=== PATIENT | female | born 1955 | race Caucasian/White ===

== ENCOUNTER → 2016-10-12 | Outpatient (CLI) | payer OTHER ==
[~2016-10-12] MED LIST: ASPEC81 PO; ATOR-14 PO; BUPRTAB51 PO; CITA20TA4 PO; CLB200 PO; CQ10 PO; FENO145T26 PO; FRRG PO; GLC/500 PO; IBUP-1050 PO; IBUP1TAB55 PO; MULTTAB58 PO; NIAC1CAP PO; OMEG1CAP84 PO; PREG1CAP28 PO; TRAM-10 PO; VITACAP26 PO; [UNRECOGNIZED DRUG - CODE] PO
[2016-10-12 09:10] LABS: ALT/SGPT 48 U/L (12-78); BLOOD UREA NITROGEN 21 mg/dl (7-18); BUN/CREATININE RATIO 24.3 (10-20); CALCIUM 9.2 mg/dl (8.5-10.1); CARBON DIOXIDE 27 mmol/L (21-32); CHLORIDE 102 mmol/L (98-107); CHOLESTEROL 161 mg/dl (0-200); CREATININE 0.87 mg/dl (0.60-1.20); GLUCOSE 134 mg/dl (70-99); POTASSIUM 4.2 mmol/L (3.5-5.1); SODIUM 135 mmol/L (136-145); TRIGLYCERIDES 151 mg/dl (0-150); VERY LOW DENSITY LIPOPROT CALC 30 mg/dl
[2016-10-12 09:13] LABS: ALKALINE PHOSPHATASE 59 U/L (45-117); AST/SGOT 31 U/L (15-37); CHOLESTEROL/HDL RATIO 3.7; HDL CHOLESTEROL 43 mg/dl; LDL CHOLESTEROL CALCULATED 88 mg/dl
[2016-10-12 10:28] LABS: ESTIMATED AVERAGE GLUCOSE 143 mg/dl; HA1C FLAG Normal (Normal)
--- NOTE | 2016-10-18 09:57 | CODING QUERY NO DIAGNOSIS ---
TREATMENT RENDERED WITHOUT A DIAGNOSIS : 1955 To promote full compliance with coding requirements relating to patient care, physician participation is requested in all cases of doll surgeon uncertainty. Please assist us with providing a diagnosis/symptom for the test(s) below: A diagnosis/symptom was not documented on your Order. A valid diagnosis/symptom is required to bill all insurances. Please remember that we are unable to code a diagnosis of rule out, probable, possible, questionable, or suspected. Tests that require a diagnosis: DOS: 10/12/16 * COMPREHENSIVE METABO DIAGNOSIS: * LIPID PROFILE FASTING DIAGNOSIS: * HEMOGLOBIN DIAGNOSIS: Provider Signature: Date: Thank you [facility] Information Management Once completed, please kindly fax back to [phone] For questions please call [phone]
== END | disposition home or self-care (01) ==
LOC: C.LAB 07:32
PROVIDERS: ATTEND Family Medicine
DX: E78.2 Mixed hyperlipidemia (principal); E11.9 Type 2 diabetes mellitus without complications

== ENCOUNTER → 2017-01-11 | Outpatient (CLI) | payer OTHER ==
[2017-01-11 08:15] LABS: ALB/GLOB RATIO 1.1 (0.9-2); ALKALINE PHOSPHATASE 68 U/L (45-117); ALT/SGPT 47 U/L (12-78); AST/SGOT 28 U/L (15-37); BLOOD UREA NITROGEN 21 mg/dl (7-18); BUN/CREATININE RATIO 20.7 (10-20); CARBON DIOXIDE 27 mmol/L (21-32); CHLORIDE 106 mmol/L (98-107); CHOLESTEROL 188 mg/dl (0-200); CHOLESTEROL/HDL RATIO 5.5; GLUCOSE 124 mg/dl (70-99); HDL CHOLESTEROL 34 mg/dl; LDL CHOLESTEROL CALCULATED 101 mg/dl; POTASSIUM 4.7 mmol/L (3.5-5.1); SODIUM 141 mmol/L (136-145); TRIGLYCERIDES 266 mg/dl (0-150); VERY LOW DENSITY LIPOPROT CALC 53 mg/dl
[2017-01-11 08:36] LABS: CALCIUM 9.4 mg/dl (8.5-10.1)
[2017-01-11 09:20] LABS: ESTIMATED AVERAGE GLUCOSE 146 mg/dl; HA1C FLAG Normal (Normal)
== END | disposition home or self-care (01) ==
LOC: C.LAB 06:47
PROVIDERS: ATTEND Family Medicine
DX: E11.9 Type 2 diabetes mellitus without complications (principal)

== ENCOUNTER → 2017-02-06 | Outpatient (CLI) | payer OTHER ==
--- NOTE | 2017-02-06 09:59 | DIAGNOSTIC IMAGING REPORT ---
MRI LUMBAR SPINE W/O CONTRAST CLINICAL HISTORY: Back pain with right leg radiculopathy. TECHNIQUE: Sagittal and axial T1, T2 and STIR images were obtained. COMPARISON STUDY: November 2012 OBSERVATIONS: The vertebral bodies and posterior elements appear intact. There is no abnormal bony signal present to suggest a marrow replacement process. L1-2: No disc protrusions or extrusions. No evidence of spinal canal or neural foraminal compromise. L2-3: No disc protrusions or extrusions. No evidence of spinal canal or neural foraminal compromise. L3-4: There is a circumferential disc bulge present. There is mild spinal stenosis. There is interspinous implant present. L4-5: There are posterior osteophytic spurs with subjacent disc protrusion.. There is facet joint arthropathy. There is moderate spinal stenosis. There is mild left-sided foraminal narrowing. There is interspinous implant present. L5-S1: There is a disc bulge and central disc protrusion. There is moderate spinal stenosis. There is moderate bilateral foraminal narrowing. The conus medullaris and cauda equina appear normal. IMPRESSION: 1. Interval placement of L3-4, and L4-5 interspinous implants 2. Multilevel spondylitic change. Mild spinal stenosis the L3-4 level, and moderate spinal stenosis at the L4-5 and L5-S1 levels. 3. Left-sided foraminal narrowing at the L4-5 level, and bilateral foraminal narrowing at the L5-S1 level. Electronically signed by: Chang Bruner M.D. 02/06/2017 9:57 AM Dictated Date/Time: 02/06/2017 9:52 AM
== END | disposition home or self-care (01) ==
LOC: C.MRIBC 08:46
PROVIDERS: ATTEND Family Medicine
DX: M54.9 Dorsalgia, unspecified (principal); M54.16 Radiculopathy, lumbar region; Z98.1 Arthrodesis status

== ENCOUNTER 2017-04-10 05:18 | Inpatient (IN) | payer OTHER ==
[2017-03-28 15:06] VITALS: BMI 39.0
--- NOTE | 2017-03-28 15:50 | PAT Medication Instructions ---
Service Date Mar 28, 2017. Current Home Medication List Atorvastatin (Lipitor), 10 MG PO QPM Bupropion (Wellbutrin-Xl), 300 MG PO QAM Citalopram Hydrobromide (Citalopram Hydrobromide), 20 MG PO QPM Fenofibrate (Tricor ), 145 MG PO QPM Ibuprofen (Advil), 200-600 MG PO Q4H PRN for Pain Metformin Hcl (Glucophage), 500 MG PO BIDM Multiple Vitamin (Multivitamin), 1 TAB PO QAM Niacin W/ Inositol (Niacin Flush Free), 1 CAP PO QAM Pierc[place]-3 Fatty Acids (Fish Oil), 3,000 UNITS PO QAM Pregabalin (Lyrica), 75 MG PO BID Tramadol (Ultram), 1 TAB PO Q6H PRN for Pain [Cq10], 100 MG PO QPM Medication Instructions For Your Scheduled Surgery - Hold the following medications as of 03/29/17: [Cq10], 100 MG PO QPM Pierceton-3 Fatty Acids (Fish Oil), 3,000 UNITS PO QAM - Hold the following medications 48 hours prior to surgery: Metformin Hcl (Glucophage), 500 MG PO BIDM - Hold the following medications 24 hours prior to surgery: Fenofibrate (Tricor ), 145 MG PO QPM Niacin W/ Inositol (Niacin Flush Free), 1 CAP PO QAM - Hold the following medications the morning of surgery: Multiple Vitamin (Multivitamin), 1 TAB PO QAM Ibuprofen (Advil), 200-600 MG PO Q4H PRN for Pain (otherwise okay to continue per surgeon) - Take the following medications the morning of surgery with a sip of water OTHERWISE NOTHING TO EAT OR DRINK AFTER MIDNIGHT: Pregabalin (Lyrica), 75 MG PO BID Bupropion (Wellbutrin-Xl), 300 MG PO QAM Tramadol (Ultram), 1 TAB PO Q6H PRN for Pain (may take if needed up to 4 hours prior to surgery) - Take the following medications as scheduled the night before surgery: Citalopram Hydrobromide (Citalopram Hydrobromide), 20 MG PO QPM Atorvastatin (Lipitor), 10 MG PO QPM Pregabalin (Lyrica), 75 MG PO BID Tramadol (Ultram), 1 TAB PO Q6H PRN for Pain If you have any questions please call us at [phone] or [phone] or [phone]
[2017-03-28 16:47] LABS: BASO % 0.7 %; BASO ABS # 0.05 K/uL (0-0.2); COMPLETE YES; EOS % 2.2 %; IG% 0.1 %; LYMPH ABS # 2.49 K/uL (1.2-3.4); MEAN CELL VOLUME 91.5 fL (80-100); MEAN CORPUSCULAR HEMOGLOBIN 29.3 pg (25-34); MEAN CORPUSCULAR HGB CONC 32.1 g/dl (32-36); MEAN PLATELET VOLUME 11.7 fL (7.4-10.4); MONO % 6.2 %; NEUT % 55.8 %; PLATELET COUNT 369 K/uL (130-400); RED BLOOD COUNT 4.26 M/uL (4.2-5.4); WHITE BLOOD COUNT 7.12 K/uL (4.8-10.8)
--- NOTE | 2017-03-28 17:07 | DIAGNOSTIC IMAGING REPORT ---
CHEST PREADMISSION(PA/LAT) CLINICAL HISTORY: Preoperative evaluation. COMPARISON STUDY: Chest radiograph February 12, 2015. FINDINGS: Lung volumes are normal. Lungs are clear. No pneumothorax or pleural effusion is present. Cardiomediastinal silhouette is normal. Pulmonary vascularity is normal. There is no evidence of pulmonary edema. The appearance of the chest is unchanged. IMPRESSION: No acute cardiopulmonary findings. Electronically signed by: Piter De La Garza M.D. 03/28/2017 5:06 PM Dictated Date/Time: 03/28/2017 5:05 PM
[2017-03-28 17:09] LABS: INR 1.1 (0.9-1.1); PARTIAL THROMBOPLASTIN RATIO 0.9; PROTHROMBIN TIME (PATIENT) 11.5 SECONDS (9.0-12.0)
[2017-03-28 17:09] LABS: URINE APPEARANCE CLOUDY (CLEAR); URINE BILIRUBIN NEG (NEG); URINE COLOR DK YELLOW; URINE EPITHELIAL CELL AUTO >30 /lpf (0-5); URINE NITRITE NEG (NEG); URINE PH 5.5 (4.5-7.5); URINE SPECIFIC GRAVITY 1.026 (1.000-1.030); UROBILINOGEN NEG (NEG)
[2017-03-28 17:11] LABS: CALCIUM 9.4 mg/dl (8.5-10.1)
[2017-03-28 17:29] LABS: MANUAL MICROSCOPIC REQUIRED? NO; REVIEW REQ? YES
[2017-03-29 07:46] LABS: ESTIMATED AVERAGE GLUCOSE 140 mg/dl; HA1C FLAG Normal (Normal)
--- NOTE | 2017-04-09 15:51 | HISTORY & PHYSICAL EXAMINATION ---
DATE OF ADMISSION: 04/10/2017 CHIEF COMPLAINT: Right hip pain. HISTORY OF PRESENT ILLNESS: The patient is a 62-year-old female with a known osteoarthritis about her right hip. She has severe pain and limitation with any activities of daily living. She takes tramadol for pain daily. Due to ongoing pain and disability, she now desires to proceed with right total hip arthroplasty. PAST MEDICAL HISTORY: Hypercholesterolemia, asthma, type 2 diabetes, depression, and obesity. PAST SURGICAL HISTORY: Lumbar spine surgery, appendectomy, tubal ligation, and cholecystectomy. MEDICATIONS: Lyrica 75 mg 2 capsules daily, tramadol 50 mg q. 6 hours p.r.n., fenofibrate 160 mg daily, metformin 500 mg 2 tablets daily, atorvastatin 10 mg daily, citalopram 20 mg daily, Wellbutrin-XL 300 mg daily, and multivitamin daily. ALLERGIES: INCLUDE PENICILLIN, CODEINE, AND CLINDAMYCIN. SOCIAL HISTORY AND REVIEW OF SYSTEMS: Noncontributory. PHYSICAL EXAMINATION: GENERAL: Well-nourished and well-developed, obese female who appears her stated age. HEENT: Normocephalic and atraumatic. Extraocular movements intact. Oropharynx is pink and moist. NECK: Supple without adenopathy. LUNGS: Clear to auscultation bilaterally. HEART: Regular rate and rhythm. ABDOMEN: Soft, nontender, nondistended, and obese. EXTREMITIES: The upper extremities are within normal limits. The right hip demonstrates limited range of motion. There is limitation of active and passive internal/external rotation with pain at end range. X-RAYS: X-rays were reviewed. She has severe osteoarthritis with complete loss of the joint space. It is difficult to see where the femoral head end and acetabulum begins. ASSESSMENT: Right hip degenerative joint disease. PLAN: Risks versus benefits were discussed. Consent was obtained. The patient's primary care physician is Dr. Flores. We will proceed with right total hip arthroplasty upon preoperative workup and medical clearance.
[2017-04-10] VITALS (10 sets, daily range): BP systolic 108–144; BP diastolic 64–87; PULSE 74–101; TEMP 36.4–36.8; O2SAT 95–100; Ht 162.6 cm; Wt 100.0 kg
[~2017-04-10] VITALS: Ht 162.6 cm; Wt 100.0 kg
[~2017-04-10 05:18] MED LIST changes: -ASPEC81 PO; -CLB200 PO; -FRRG PO; -IBUP1TAB55 PO; -VITACAP26 PO; -[UNRECOGNIZED DRUG - CODE] PO
[2017-04-10] MEDS ORDERED: DEXAMETHASONE 4 MG TAB PO SCH (06:00)
[2017-04-10] MEDS ORDERED: ROPIVACAINE 5MG/ML 30 ML 150 MG, BUPIVACAINE/EPINEPHR 0.5% MPF 30 ML, KETOROLAC TROMETH... INFIL SCH ×7 (06:00)
[2017-04-10] MEDS ORDERED: GABAPENTIN 300 MG CAP PO SCH (06:00)
[2017-04-10] MEDS ORDERED: FAMOTIDINE 20 MG TAB PO SCH (06:00)
[2017-04-10] MEDS ORDERED: METOCLOPRAMIDE HCL 10 MG TAB PO SCH (06:00)
[2017-04-10] MEDS ORDERED: LACTATED RINGER'S 1000ML 1,000 ML IV SCH ×2 (06:00)
[2017-04-10] MEDS ORDERED: CeleBREX 200 MG CAP PO SCH (06:00)
[2017-04-10] MEDS ORDERED: ACETAMINOPHEN 500 MG TAB PO SCH (06:00)
[2017-04-10] MEDS ORDERED: BUPIVACAINE 0.5 % 5 MG/1 ML PF 10ML VIAL ONE (06:24)
[2017-04-10] MEDS ORDERED: MIDAZOLAM HCL 1 MG/ML 2ML VIAL ONE (06:26)
[2017-04-10] MEDS ORDERED: LIDOCAINE HCL 2% 2 ML VIAL (20MG/ML) ONE (06:26)
[2017-04-10] MEDS ORDERED: FENTANYL CITRATE INJ 50 MCG/1 ML 2 ML VIAL ONE (06:26)
[2017-04-10] MEDS ORDERED: PROPOFOL IV EMULSION 10 MG/ML 20 ML VIAL IV ONE (06:26)
[2017-04-10] MEDS: TRANEXAMIC ACID INJ 1,000 MG in SODIUM CHLORIDE 0.9% 100ML 100 ML IV SCH ×2 (06:30→07:32)
[2017-04-10] MEDS ORDERED: POVIDONE-IODINE OP SOLN 30 ML BTL ONE (07:02)
[2017-04-10] MEDS ORDERED: BACITRACIN 50000 UNIT VIAL ONE ×2 (07:02→07:37)
--- NOTE | 2017-04-10 07:04 | History & Physical Bridge Note ---
H&P Re-Evaluation Bridge Note: I have examined the patient, reviewed the History & Physical and in the interval since the performance of the History & Physical I have noted the following changes of clinical significance: No changes noted
[2017-04-10] MEDS ORDERED: VANCOMYCIN INJ 1,500 MG in SODIUM CHLORIDE 0.9% 500ML 500 ML IV SCH ×2 (07:45→20:00)
[2017-04-10] MEDS ORDERED: ONDANSETRON INJ 2 MG/ML 2 ML VIAL ONE (08:34)
[2017-04-10] MEDS ORDERED: LABETALOL HCL IV 5 MG/ML 20ML IV PRN (09:00)
[2017-04-10] MEDS ORDERED: PHENYLEPHRINE 100MCG/ML 5ML SYR IV PRN (09:00)
[2017-04-10] MEDS ORDERED: ATROPINE SULFATE 0.1 MG/ML 5ML SYR IV PRN (09:00)
[2017-04-10] MEDS ORDERED: FLUMAZENIL 0.1 MG/1 ML 10 ML VIAL IV PRN (09:00)
[2017-04-10] MEDS ORDERED: ONDANSETRON INJ 2 MG/ML 2 ML VIAL IV PRN ×2 (09:00→09:15)
[2017-04-10] MEDS ORDERED: NALOXONE HCL 0.4 MG/1 ML VIAL/CARP IV PRN (09:00)
[2017-04-10] MEDS ORDERED: FENTANYL CITRATE INJ 50 MCG/1 ML 2 ML VIAL IV PRN (09:00)
[2017-04-10] MEDS ORDERED: MEPERIDINE HCL 25 MG/ML CARP IV PRN (09:00)
[2017-04-10] MEDS ORDERED: EpHEDrine SULFATE INJ 50 MG/ML AMP IV PRN (09:00)
--- NOTE | 2017-04-10 09:00 | [facility] Post Operative Brief Note ---
Immediate Operative Summary Operative Date Apr 10, 2017. Pre-Operative Diagnosis Right Hip Degenerative Joint Disease Post-Operative Diagnosis Right Hip Degenerative Joint Disease Procedure(s) Performed Right Total Hip Arthroplasty Surgeon Dr. Gurpreet Sharif Ironworker Machine Operator Surgeon(s) Jude Willoughby PA-C Estimated Blood Loss 150ML Findings severe oa Specimens A. Right Femoral Head Complication(s) None Disposition Recovery Room / PACU
[2017-04-10] MEDS ORDERED: DiphenhydrAMINE HCL 50 MG/ML VIAL IV PRN (09:15)
[2017-04-10] MEDS ORDERED: ALUMINUM/MAGNESIUM/SIMETH (MAALOX MAX) 30 ML UDC PO PRN (09:15)
[2017-04-10] MEDS ORDERED: METOCLOPRAMIDE HCL INJ 5 MG/ML 2 ML VIAL IV PRN (09:15)
[2017-04-10] MEDS ORDERED: SOD PHOSPHATE/SOD BIPHOSPHATE ENEMA 132 ML BTL PR PRN (09:15)
[2017-04-10] MEDS ORDERED: BISACODYL 10 MG SUPP PR PRN (09:15)
[2017-04-10] MEDS ORDERED: MAGNESIUM HYDROXIDE SUSP 30 ML UDC PO PRN (09:15)
[2017-04-10] MEDS ORDERED: ZOLPIDEM TARTRATE 5 MG TAB PO PRN (09:15)
--- NOTE | 2017-04-10 09:18 | OPERATIVE REPORT ---
DATE OF OPERATION: 04/10/2017 PREOPERATIVE DIAGNOSIS: Osteoarthritis, right hip. POSTOPERATIVE DIAGNOSIS: Osteoarthritis, right hip. PROCEDURE: Right connective total hip arthroplasty. SURGEON: Dr. Sharif. DEPORTATION EXAMINER: Jude Willoughby PA-C. ANESTHESIA: Spinal. COMPLICATIONS: None. OPERATION AND FINDINGS: PROCEDURE: Following induction of adequate spinal anesthesia, the patient was placed in left lateral decubitus position and right Samson-Langenbeck incision was made. Subcutaneous tissue was sharply dissected. Electrocautery used for hemostasis. The fascia was incised throughout the length of the wound and a traylor scissor placed beneath the short external rotators. The pyriformis was tagged with #1 Vicryl. The short external rotators were divided from the posterior aspect of the femur using electrocautery. These were swept posteriorly. A T-capsulotomy incision was made and the hip was dislocated using a combination of flexion, adduction, and internal rotation. Exposure of the femoral neck with old-style Hohmann and a blunt Hohmann was carried out and a femoral rasp was utilized as a guide for making the appropriate level femoral neck cut. This bone fragment was removed and reserved on the back table. Next, attention was turned to the acetabulum where bone hook was used to retract the femur while the offset retractors were placed anterior and posteriorly. A double-angled Hohmann was placed in superior and anterior position exposing the acetabulum nicely. Acetabular labrum as well as posterior capsule elements were removed using a long knife and a long pickup. Fovea centralis was cleared of all soft tissue. Sequential reamings were carried up to a 50 and decision was made to proceed with impaction of a 50 trabecular metal cup. This was impacted and held using a single 35 mm bone screw. The acetabular liner was placed with 15 of elevated posterior wall in the superior and posterior position. Next, attention was turned to the femoral portion of the case where a Bovie and pickup was used to further clear short external rotators from their insertion on the femur. Box osteotome was used to gain access to the femoral canal and the T-handled rasp and a rattail rasp were used to further open and lateral the canal. Sequentially raspings were carried up to a ____ which gave good fit and fill of the proximal femur. A trial reduction was carried out and ____ offset femoral neck component was chosen as the size to be used. A +2.5 x 36 mm femoral head was impacted into position, +0 head was utilized. The trial reduction was stable in all degrees of rotation with no [id number] impingement. The hip was dislocated. The trial components were removed and the final femoral stem, neck, and femoral head combination were assembled on the back table and impacted into position. Hip was relocated. Range of motion checked once again successful and the wound was irrigated. The pyriformis repaired to the greater trochanter using #1 Vicryl [id number] suture. A Hemovac drain was placed and the fascia was closed using #1 Vicryl, subcutaneous tissue was closed using 0 Dexon, and skin was closed with tawana. Sterile dressing of Adaptic, 4 x 4's, ABDs, and foam tape was applied. The patient tolerated the procedure well. Due to the complex nature of the procedure, the entire surgery was performed with the operational assistance of Jude Willoughby PA-C. The casino assistant manager, under direct supervision, was involved in the actual performance of all aspects of the surgical procedure including hemostasis, tissue retraction and incision, instrument management, patient positioning, and wound closure. I attest to the content of the Intraoperative Record and any orders documented therein. Any exception s are noted below.
--- NOTE | 2017-04-10 10:08 | DIAGNOSTIC IMAGING REPORT ---
RIGHT PELVIS/UNILATERAL HIP 1 VIEW CLINICAL HISTORY: Postoperative evaluation. COMPARISON: None FINDINGS: Alignment of the total right hip arthroplasty is anatomic. There is no periprosthetic fracture or unexpected radiopaque foreign body. Surgical drain is in place. There is an acetabular screw. IMPRESSION: Expected findings following total right hip arthroplasty. Electronically signed by: Piter De La Garza M.D. 04/10/2017 10:07 AM Dictated Date/Time: 04/10/2017 10:06 AM
[2017-04-10] MEDS ORDERED: PHARMACY GLYCEMIC MGMT CONSULT SCH (10:09)
--- NOTE | 2017-04-10 10:36 | Anesthesiology Progress Note ---
Anesthesia Post Op Note Date & Time Apr 10, 2017 at 10:36 Vital Signs Pain Intensity: 0 Vital Signs Past 12 Hours Date Time Temp Pulse Resp B/P (MAP) Pulse Ox O2 Delivery O2 Flow Rate FiO2 04/10/17 10:31 133/71 04/10/17 10:30 80 15 97 04/10/17 10:30 80 15 04/10/17 10:26 124/67 04/10/17 10:25 78 15 97 04/10/17 10:25 79 15 04/10/17 10:25 36.8 79 17 124/67 100 Nasal Cannula 2 04/10/17 10:21 127/72 04/10/17 10:20 79 15 98 04/10/17 10:20 79 15 04/10/17 10:16 116/75 04/10/17 10:15 78 15 98 04/10/17 10:15 78 15 04/10/17 10:11 114/71 04/10/17 10:10 79 16 99 04/10/17 10:10 81 16 04/10/17 10:06 142/65 04/10/17 10:05 81 18 04/10/17 10:05 82 18 100 04/10/17 10:01 142/75 04/10/17 10:00 78 18 04/10/17 10:00 78 18 100 04/10/17 09:56 133/73 04/10/17 09:55 78 19 04/10/17 09:55 78 19 100 04/10/17 09:51 135/78 04/10/17 09:50 80 19 04/10/17 09:50 84 19 100 04/10/17 09:46 138/70 04/10/17 09:45 74 18 100 04/10/17 09:45 78 18 04/10/17 09:41 146/70 04/10/17 09:40 77 19 100 04/10/17 09:40 36.2 75 20 146/70 100 Mask 10 04/10/17 09:40 77 19 04/10/17 06:11 36.7 78 20 124/64 95 Room Air Notes Mental Status: alert / awake / arousable, participated in evaluation Pt Amnestic to Procedure: Yes Nausea / Vomiting: adequately controlled Pain: adequately controlled Airway Patency, RR, SpO2: stable & adequate BP & HR: stable & adequate Hydration State: stable & adequate Neuraxial Anesthesia: was administered, sensory block is resolving Anesthetic Complications: no major complications apparent
--- NOTE | 2017-04-10 11:27 | Pharmacy Progress Note ---
Glycemic Control Intl Consult Date of Service Apr 10, 2017. Scope Glycemic Pharmacist consulted by Dr Sharif on 04/10/17 for glycemic control and to write orders per [facility] inpatient glycemic control protocol Objective Weight (Kilograms): 38.700 Accuchecks BSG (last 24hrs): Test 04/10/17 05:44 04/10/17 10:06 04/10/17 10:56 Bedside Glucose 122 mg/dl (70-90) 175 mg/dl (70-90) 188 mg/dl (70-90) HbA1c Test 03/28/17 15:59 Hemoglobin A1c 6.5 % (4.5-5.6) H Recent Pertinent Medications Outpatient Anti-diabetic Regimen: * Metformin 500mg po BID meals * A1c = 6.5 % 03/28/17 Risk Factors for Insulin Resistance: * Steroids: Dexamethasone 8mg po x1 today preop * Infection: Vancomycin pre and postop * Recent Surgery: s/p MANPREET * Diet: Regular Assessment & Plan ASSESSMENT: * 62 year old female type 2 diabetic managed on metformin as outpatient, controlled, s/p MANPREET * BSGs increasing today, pt received 1 dose of dexamethasone preop contributing to hyperglycemia * Give one dose of Lantus today and start with CF and CR based on wt with stress of 2-3, will loosen CF and CR tomorrow as dexamethasone wears off * ADA & AACE recommend a goal blood sugar range 140-180 mg/dl for the majority of critically ill & non-critically ill patients. However, more stringent targets may be selected in individual cases. Will utilize more stringent goal of 100-140mg/dl based on patient age & comorbidities. Additionally, tighter glycemic control is warranted to facilitate wound/infection healing. PLAN FOR INPATIENT GLYCEMIC CONTROL: * Holding outpatient oral diabetes medications * Restart Metformin 500mg PO BID with meals tomorrow morning * Basal insulin with LANTUS 10 units SQ x 1 dose now * Correctional Insulin with NOVOLOG per scale ACHS or Q6hrs while NPO and at 0000 and 0400 overnight tonight * Goal Range: Low 100 mg/dL - High 140 mg/dL * Correction Factor: 20 mg/dL/unit * Nutritional / Prandial insulin per carb ratio of 1 unit per 7 grams CHO consumed * Please note that the plan above was derived based on current level of insulin resistance and hospital stress. These recommendations are appropriate for inpatient admission only. Plan of care upon discharge will need to be reassessed to avoid potential outpatient hypo/hyperglycemia. Thank you.
[2017-04-10] MEDS ORDERED: GLUCOSE 10 TABS/TUBE PO PRN (11:30)
[2017-04-10] MEDS ORDERED: GLUCAGON FOR INJ 1 MG VIAL SQ PRN (11:30)
[2017-04-10] MEDS ORDERED: DEXTROSE 50% 50 ML SYR IV PRN (11:30)
[2017-04-10] MEDS ORDERED: GLUCOSE 40% GEL 15 GM TUBE PO PRN (11:30)
[2017-04-10] MEDS ORDERED: LANTUS PER UNIT CHARGE SQ ONE (12:00)
[2017-04-10] MEDS ORDERED: NURSING VERBAL MED ORDER ONE (12:15)
[2017-04-10] MEDS: INSULIN ASPART 100 UNITS/ML 3 ML PEN SC SCH ×4 (12:23→23:58)
[2017-04-10] MEDS: HYDROCODONE/ACETAMOPHEN 5/325MG TAB PO PRN ×2 (12:24→19:33)
[2017-04-10] MEDS ORDERED: D5W AND 1/2NSS + 20MEQ KCL 1,000 ML IV SCH (12:30)
[2017-04-10] MEDS: SODIUM CHLORIDE 0.9% 1000ML 1,000 ML IV SCH ×2 (13:46→21:59)
[2017-04-10] MEDS: FERROUS GLUCONATE 324 MG TAB PO SCH ×2 (13:46→18:09)
[2017-04-10] MEDS: KETOROLAC TROMETHAMINE 30 MG/ML VIAL IV. SCH ×2 (13:48→19:41)
[2017-04-10] MEDS: ACETAMINOPHEN IV 1,000 MG in EMPTY BAG 0 ML IV SCH ×2 (13:50→22:00)
[2017-04-10] MEDS ORDERED: TRANEXAMIC ACID INJ 1,000 MG in SODIUM CHLORIDE 0.9% 100ML 100 ML IV ONE (15:30)
--- NOTE | 2017-04-10 15:31 | Discharge Instructions ---
Discharge Instructions Date of Service Apr 10, 2017. Admission Reason for Admission: Right Hip Degenerative Joint Disease Discharge Discharge Diagnosis / Problem: Right hip arthritis Discharge Goals Goal(s): Decrease discomfort, Improve function Activity Recommendations Activity Limitations: as noted below Weightbearing Status: Right weightbearing (as tolerated) . Instructions / Follow-Up Instructions / Follow-Up ACTIVITY RECOMMENDATIONS: SELF CARE INSTRUCTIONS AFTER TOTAL HIP REPLACEMENT Until the incision and soft tissues around your hip have healed, there is a possibility that the hip prosthesis could dislocate. A. Observe the following precautions to prevent dislocation: 1. Don't bend your hip greater than 90 degrees. 2. Avoid crossing your legs or ankles while standing or lying. 3. Sit with your feet placed 6 inches apart. 4. When sitting, keep your knees below your hips. Sit on a firm surface, avoid deep, soft chairs and couches. Use an elevated toilet seat in the bathroom. 5. Don't bend over at the waist. Use a long handled shoehorn and a sock aid to help you put on your shoes and socks. A short piece handler can help you picking crew supervisor objects that are too high or too low to reach. 6. Keep car riding to a minimum for at least one month after surgery. B. Your balance may be shaky for a while. Use crutches or a walker until directed by your doctor. C. Use hand rails when walking on stairs. D. Wear low heeled shoes with non-slip soles. E. Be sure that your floors are free of things that could trip you - throw rugs , electrical cords, small objects. Avoid wet and waxed floors, especially with crutches and canes. F. Try to walk several times a day with rest periods between. G. Continue with all the exercises taught to you in the hospital. Again, make walking a part of your daily routine. SPECIAL CARE INSTRUCTIONS: VERY IMPORTANT TO READ AND REVIEW A. You may still be at risk for phlebitis and blood clots. 1. Wear surgical stockings (FREDA hose) for 2 weeks after surgery to improve circulation and reduce swelling. 2. Take Aspirin 81mg twice daily for 4 weeks or as directed by your doctor. This is your blood thinner. 3. High risk patients may be prescribed a stronger blood thinner if necessary. 4. If you are on Coumadin normally, your family doctor/calker should monitor your blood work. Expect a phone call the day of or the day after bloodwork is drawn to adjust your dosage. B. You must take antibiotics before having dental work, bladder, bowel and other surgery. Your doctor will provide you with a permanent card to carry describing precautions. C. Call [facility] if you have a fever, redness or swelling around the incision, cloudy drainage from incision, or sudden increase in pain in your hip, not relieved by your regular pain medication. D. Please call the office at if you have any concerns or questions about your operation or recovery. * YOU MAY SHOWER, NO TUB BATHS UNTIL CLEARED BY YOUR DOCTOR. * WEAR FREDA HOSE 20 HOURS PER DAY FOR 2 WEEKS. * YOU SHOULD USE A WALKER OR CRUTCHES FOR 2-4 WEEKS. THIS WILL HELP PREVENT STRAIN ON YOUR HIP MUSCLE AND ALLOW IT TO HEAL PROPERLY. YOU MAY WEAN TO A CANE TOLERATED. * MOST PATIENTS WILL HAVE HOME NURSING FOR THERAPY. IF YOU DECIDE TO DO OUTPATIENT PHYSICAL THERAPY, PLEASE SCHEDULE THIS 3 TIMES PER WEEK. Silverlon- This is a large adhesive bandage that contains silver ions. This helps your incision heal by fighting off bacteria and protecting it from the outside environment. You are permitted to shower with this dressing. This will remain on your incision for 7 days and then should be removed. Some visible blood or drainage through the dressing window is normal. If there is significant drainage or leaking noted before the 7 days notify your doctor's office immediately. Once removed, keep incision clean and dry. If there is any drainage or redness noted, please call your surgeon. FOLLOW UP VISIT: If appointment is not already scheduled: Please call [facility] to make a follow-up appointment for 2 weeks after your surgery at . Current Hospital Diet Patient's current hospital diet: Diabetes Type 2 Diet Discharge Diet Recommended Diet: Regular Diet Procedures Procedures Performed: Right Total Hip Arthroplasty Pending Studies Studies pending at discharge: no Laboratory Results Hemoglobin A1c Test 03/28/17 15:59 Range/Units Estimated Average Glucose 140 mg/dl Hemoglobin A1c 6.5 H 4.5-5.6 % Lipid Panel Test 01/11/17 06:50 Range/Units Triglycerides Level 266 H 0-150 mg/dl Cholesterol Level 188 0-200 mg/dl HDL Cholesterol 34 mg/dl Cholesterol/HDL Ratio 5.5 LDL Cholesterol, Calculated 101 mg/dl Medical Emergencies . Who to Call and When: Medical Emergencies: If at any time you feel your situation is an emergency, please call 911 immediately. . Non-Emergent Contact Non-Emergency issues call your: Surgeon Call Non-Emergent contact if: temperature is above 101.5, your pain is not controlled, wound has increased drainage, wound has increased redness . "Provider Documentation" section prepared by Jude Willoughby PA-C. . VTE Core Measure Inpt VTE Proph given/why not?: Other Anticoagulation (ASA 81mg bid), T.E.D. Stockings, SCD's [place] Drug Monitoring Program Search Results: patient reviewed within database, no issues identified
[2017-04-10] MEDS ORDERED: COUGH DROP (SUGAR FREE) LOZ 24 LOZ/1 BOX ONE (19:27)
[2017-04-10] MEDS ORDERED: NURSING DECISION MEDICATION ORDER SCH (19:30)
[2017-04-10] MEDS ORDERED: COUGH DROP (SUGAR FREE) LOZ 24 LOZ/1 BOX PO PRN (20:15)
[2017-04-10] MEDS: PREGABALIN 75 MG CAP PO SCH (21:59)
[2017-04-10] MEDS: CITALOPRAM 20 MG TAB PO SCH (22:08)
[2017-04-10] MEDS: SENNA 8.6 MG TAB PO SCH (22:08)
[2017-04-10] MEDS: ATORVASTATIN 10 MG TAB PO SCH (22:08)
[2017-04-10] MEDS: FENOFIBRATE 145 MG TAB PO SCH (22:09)
[2017-04-10] MEDS: DOCUSATE SODIUM 100 MG CAP PO SCH (22:09)
[2017-04-10] MEDS: ASPIRIN 81 MG ECTAB PO SCH (22:09)
[2017-04-11] MEDS: MoRPHine SULFATE 2 MG/ML CARP IV PRN ×4 (00:12→23:33)
[2017-04-11] MEDS: KETOROLAC TROMETHAMINE 30 MG/ML VIAL IV. SCH ×2 (02:09→09:13)
[2017-04-11 03:52] VITALS: BP 108/67; PULSE 77; TEMP 36.5; O2SAT 96
[2017-04-11] MEDS: INSULIN ASPART 100 UNITS/ML 3 ML PEN SC SCH ×5 (04:00→21:08)
[2017-04-11] MEDS: ACETAMINOPHEN IV 1,000 MG in EMPTY BAG 0 ML IV SCH (05:51)
[2017-04-11 06:19] LABS: BASO % 0.1 %; BASO ABS # 0.01 K/uL (0-0.2); COMPLETE YES; EOS % 0.2 %; HEMATOCRIT 28.9 % (37-47); IG% 0.1 %; LYMPH ABS # 2.15 K/uL (1.2-3.4); MEAN CELL VOLUME 92.3 fL (80-100); MEAN CORPUSCULAR HGB CONC 32.5 g/dl (32-36); MEAN PLATELET VOLUME 11.9 fL (7.4-10.4); NEUT % 67.6 %; PLATELET COUNT 264 K/uL (130-400); RED BLOOD COUNT 3.13 M/uL (4.2-5.4); WHITE BLOOD COUNT 9.34 K/uL (4.8-10.8)
--- NOTE | 2017-04-11 07:13 | Orthopedic Progress Note ---
Orthopedic Progress Note Date of Service Apr 11, 2017. Subjective Post OP Day: 1 Reports: feeling well Objective N/V intact, dressing C/D/I (Hemovac d/c'd), toes mobile Date Time Temp Pulse Resp B/P (MAP) Pulse Ox O2 Delivery O2 Flow Rate FiO2 04/11/17 03:52 36.5 77 16 108/67 (81) 96 Room Air 04/10/17 23:45 Room Air 04/10/17 23:32 36.5 78 16 108/66 (80) 98 Room Air 04/10/17 19:46 36.7 74 16 128/76 (93) 95 Room Air 04/10/17 15:51 36.8 97 16 119/73 (88) 96 Nasal Cannula 2.0 04/10/17 15:30 Nasal Cannula 2.0 04/10/17 13:45 36.4 85 16 144/87 (106) 97 Nasal Cannula 2.0 04/10/17 12:45 89 17 118/70 (86) 98 04/10/17 11:45 101 16 125/76 (92) 99 Nasal Cannula 2.0 04/10/17 11:18 36.5 84 16 118/76 (90) 98 Nasal Cannula 2.0 04/10/17 10:45 36.5 84 16 135/78 (97) 100 Nasal Cannula 2.0 04/10/17 10:45 Nasal Cannula 2.0 04/10/17 10:45 Nasal Cannula 2.0 04/10/17 10:31 133/71 04/10/17 10:30 80 15 97 04/10/17 10:30 80 15 04/10/17 10:26 124/67 04/10/17 10:25 78 15 97 04/10/17 10:25 79 15 04/10/17 10:25 36.8 79 17 124/67 100 Nasal Cannula 2 04/10/17 10:21 127/72 04/10/17 10:20 79 15 98 04/10/17 10:20 79 15 04/10/17 10:16 116/75 04/10/17 10:15 78 15 98 04/10/17 10:15 78 15 04/10/17 10:11 114/71 04/10/17 10:10 79 16 99 04/10/17 10:10 81 16 04/10/17 10:06 142/65 04/10/17 10:05 81 18 04/10/17 10:05 82 18 100 04/10/17 10:01 142/75 04/10/17 10:00 78 18 04/10/17 10:00 78 18 100 04/10/17 09:56 133/73 04/10/17 09:55 78 19 04/10/17 09:55 78 19 100 04/10/17 09:51 135/78 04/10/17 09:50 80 19 04/10/17 09:50 84 19 100 04/10/17 09:46 138/70 04/10/17 09:45 74 18 100 04/10/17 09:45 78 18 04/10/17 09:41 146/70 04/10/17 09:40 77 19 100 04/10/17 09:40 36.2 75 20 146/70 100 Mask 10 04/10/17 09:40 77 19 Laboratory Results 24 Hours: Test 04/11/17 05:16 White Blood Count 9.34 K/uL Red Blood Count 3.13 M/uL Hemoglobin 9.4 g/dL Hematocrit 28.9 % Mean Corpuscular Volume 92.3 fL Mean Corpuscular Hemoglobin 30.0 pg Mean Corpuscular Hemoglobin Concent 32.5 g/dl Platelet Count 264 K/uL Mean Platelet Volume 11.9 fL Neutrophils (%) (Auto) 67.6 % Lymphocytes (%) (Auto) 23.0 % Monocytes (%) (Auto) 9.0 % Eosinophils (%) (Auto) 0.2 % Basophils (%) (Auto) 0.1 % Neutrophils # (Auto) 6.31 K/uL Lymphocytes # (Auto) 2.15 K/uL Monocytes # (Auto) 0.84 K/uL Eosinophils # (Auto) 0.02 K/uL Basophils # (Auto) 0.01 K/uL Assessment & Plan Assessment: 62 yo female stable POD #1 s/p right MANPREET Plan: 1. Med management 2. DVT prophylaxis- ASA, SCDs 3. PT/OT 4. D/C planning- home w/ HH
[2017-04-11 07:45] VITALS: BP 116/60; PULSE 70; TEMP 36.6; O2SAT 98
--- NOTE | 2017-04-11 08:16 | Anesthesiology Progress Note ---
Anesthesia Post Op Note Date & Time Apr 11, 2017 at 08:16 Vital Signs Pain Intensity: 6.0 Vital Signs Past 12 Hours Date Time Temp Pulse Resp B/P (MAP) Pulse Ox O2 Delivery O2 Flow Rate FiO2 04/11/17 07:45 36.6 70 16 116/60 (78) 98 Room Air 04/11/17 03:52 36.5 77 16 108/67 (81) 96 Room Air 04/10/17 23:45 Room Air 04/10/17 23:32 36.5 78 16 108/66 (80) 98 Room Air Notes Mental Status: alert / awake / arousable, participated in evaluation Pt Amnestic to Procedure: Yes Nausea / Vomiting: adequately controlled Pain: adequately controlled Airway Patency, RR, SpO2: stable & adequate BP & HR: stable & adequate Hydration State: stable & adequate Neuraxial Anesthesia: sensory block resolved Anesthetic Complications: no major complications apparent
[2017-04-11] MEDS: FERROUS GLUCONATE 324 MG TAB PO SCH ×3 (09:13→18:29)
[2017-04-11] MEDS: DOCUSATE SODIUM 100 MG CAP PO SCH ×2 (09:14→21:06)
[2017-04-11] MEDS: ASPIRIN 81 MG ECTAB PO SCH ×2 (09:14→21:06)
[2017-04-11] MEDS: BuPROPion XL 300 MG TABCR PO SCH (09:14)
[2017-04-11] MEDS: MULTIVITAMIN TAB PO SCH (09:14)
[2017-04-11] MEDS: PANTOprazole SOD 40 MG TAB PO SCH (09:14)
[2017-04-11] MEDS: METFORMIN HCL 500 MG TAB PO SCH ×2 (09:14→18:29)
[2017-04-11] MEDS: PREGABALIN 75 MG CAP PO SCH ×2 (09:23→21:07)
[2017-04-11] MEDS: HYDROCODONE/ACETAMOPHEN 5/325MG TAB PO PRN ×2 (09:23→18:40)
--- NOTE | 2017-04-11 12:38 | Pharmacy Progress Note ---
Glycemic Control Progress Note Date of Service Apr 11, 2017. Scope Glycemic Pharmacist consulted for glycemic control to write orders per [facility] inpatient glycemic control protocol. Objective Accuchecks BSG (last 24hrs): Test 04/10/17 17:15 04/10/17 20:57 04/10/17 23:52 04/11/17 03:55 Bedside Glucose 159 mg/dl (70-90) 154 mg/dl (70-90) 138 mg/dl (70-90) 139 mg/dl (70-90) Test 04/11/17 08:19 04/11/17 12:03 Bedside Glucose 106 mg/dl (70-90) 118 mg/dl (70-90) HbA1c: Test 03/28/17 15:59 Hemoglobin A1c 6.5 % (4.5-5.6) H Recent Pertinent Medications The patient is currently receiving: * Basal insulin: Lantus 10 units SQ x 1 dose on 04/10 * Correctional Insulin: Novolog Correction per scale ACHS Goal Range: Low 100 mg/dL - High 140 mg/dL Correction Factor: 20 mg/dL/unit * Prandial insulin: Per carb ratio of 1 unit per 7 grams CHO consumed * Oral Agents: Metformin 500 mg PO BID Outpatient Anti-Diabetic Meds Oral Agents * metformin Assessment & Plan ASSESSMENT: * See progress note from 04/10/17 for more background info, in short: * 62 yr old female POD #1 s/p MANPREET. Pt receiving SQ basal bolus insulin regimen for hyperglycemia secondary to baseline DM, stress from recent surgery and pre- op steroids. * Patient is currently receiving an average of 30 units of insulin per day * 10 units of basal insulin * 20 units of prandial/correctional insulin * BSGs ranging 106 - 188 mg/dl over the past 24hrs * Changes needed to insulin regimen: * AM Fasting BSG = 106 mg/dl. This is at goal range for patient based on inpatient targets and co-morbidities. One time dose of Lantus was administered yesterday to help offset the effect of pre-op dexamethasone. No further Lantus required. * Post-prandial BSGs are in range. Will loosen CF/CR to wt/stress 2 as dexamethasone effect has worn off. PLAN FOR INPATIENT GLYCEMIC CONTROL: * Oral Agents * Metformin 500mg PO BID * Bolus insulin * NovoLog per scale ACHS or Q6hrs while NPO * Goal Range: Low 100 mg/dL - High 140 mg/dL * Correction Factor: 25 mg/dL/unit * Nutritional / Prandial insulin per carb ratio of 1 unit per 8 grams CHO consumed RECOMMENDATIONS FOR DISCHARGE: * Good outpatient control evidenced by A1c of 6.5% on 03/28/17 * Recommend continuing outpatient regimen of metformin 500 mg po BID on discharge * administer with meals to decrease GI side effects * consider titrating as tolerated by 500 mg per week to goal of 1000 mg BID * Please note that the plan above was derived based on current level of insulin resistance and hospital stress. These recommendations are appropriate for inpatient admission only. Plan of care upon discharge will need to be reassessed to avoid potential outpatient hypo/hyperglycemia. Thank you.
[2017-04-11 16:17] VITALS: BP 116/71; PULSE 75; TEMP 36.6; O2SAT 98
[2017-04-11] MEDS: ATORVASTATIN 10 MG TAB PO SCH (21:06)
[2017-04-11] MEDS: CITALOPRAM 20 MG TAB PO SCH (21:06)
[2017-04-11] MEDS: SENNA 8.6 MG TAB PO SCH (21:06)
[2017-04-11] MEDS: FENOFIBRATE 145 MG TAB PO SCH (21:07)
[2017-04-11] MEDS: CeleBREX 200 MG CAP PO SCH (21:07)
[2017-04-11 22:55] VITALS: BP 100/62; PULSE 78; TEMP 36.5; O2SAT 97
[2017-04-12] MEDS: HYDROCODONE/ACETAMOPHEN 5/325MG TAB PO PRN (06:15)
[2017-04-12 06:57] VITALS: BP 139/80; PULSE 79; TEMP 36.6; O2SAT 97
--- NOTE | 2017-04-12 08:56 | Orthopedic Progress Note ---
Orthopedic Progress Note Date of Service Apr 12, 2017. Subjective Post OP Day: 2 Reports: feeling well, pain controlled w PO medications, Denies: chest pain, SOB , nausea / vomiting, light headedness, calf pain Objective calves soft nontender, N/V intact, hip located, capillary refill less than 2 sec., dressing C/D/I (silverlon), A&O x3, toes mobile Date Time Temp Pulse Resp B/P (MAP) Pulse Ox O2 Delivery O2 Flow Rate FiO2 04/12/17 08:00 Room Air 04/12/17 06:57 36.6 79 17 139/80 (99) 97 Room Air 04/12/17 01:42 Room Air 04/11/17 22:55 36.5 78 18 100/62 (75) 97 Room Air 04/11/17 16:25 Room Air 04/11/17 16:17 36.6 75 17 116/71 (86) 98 Room Air Assessment & Plan Assessment: 62 yo female stable POD 2 s/p right MANPREET Plan: 1. Med management 2. DVT prophylaxis- ASA, SCDs 3. PT/OT 4. D/C planning- home w/ HH Patient seen and examined, agree with above. Inhouse Planning Pain Management: Celebrex, [place] DVT Prophylaxis: TEDs, SCDs, ASA Discharge Planning Discharge Planning: home with home health Pain Management: Celebrex, PO Tylenol, Oxy IR DVT Prophylaxis: TEDs, ASA Therapy: Physical Therapy
[2017-04-12] MEDS ORDERED: FRRG PO (09:00)
[2017-04-12] MEDS ORDERED: ASPEC81 PO (09:00)
[2017-04-12] MEDS: DOCUSATE SODIUM 100 MG CAP PO SCH (09:00)
[2017-04-12] MEDS: FERROUS GLUCONATE 324 MG TAB PO SCH ×2 (09:00→11:27)
[2017-04-12] MEDS ORDERED: CLB200 PO (09:00)
[2017-04-12] MEDS: CeleBREX 200 MG CAP PO SCH (09:01)
[2017-04-12] MEDS: MULTIVITAMIN TAB PO SCH (09:01)
[2017-04-12] MEDS: ASPIRIN 81 MG ECTAB PO SCH (09:01)
[2017-04-12] MEDS: BuPROPion XL 300 MG TABCR PO SCH (09:01)
[2017-04-12] MEDS: PANTOprazole SOD 40 MG TAB PO SCH (09:01)
[2017-04-12] MEDS: METFORMIN HCL 500 MG TAB PO SCH (09:01)
[2017-04-12] MEDS: PREGABALIN 75 MG CAP PO SCH (09:05)
[2017-04-12] MEDS: INSULIN ASPART 100 UNITS/ML 3 ML PEN SC SCH ×2 (09:10→11:27)
[2017-04-12] MEDS ORDERED: NURSING VERBAL MED ORDER ONE (09:30)
[2017-04-12] MEDS ORDERED: OXYCODONE HCL IR 5 MG TAB (IMMEDIATE RELEASE) PO PRN (10:15)
[2017-04-12 10:35] VITALS: BP 139/80; PULSE 79; TEMP 36.6; O2SAT 97
--- NOTE | 2017-04-23 20:37 | DISCHARGE SUMMARY ---
CHIEF COMPLAINT: Right hip pain. Please see complete history and physical examination. HOSPITAL COURSE: The patient underwent a right total hip arthroplasty without complication. She tolerated the procedure well and was discharged to recovery room in stable condition. Her postop course was relatively uneventful. Her postoperative pain was reasonably well controlled with a combination of spinal anesthesia, intraoperative joint injection, IV, and oral pain medications. She was started on aspirin for DVT prophylaxis. She also utilized FREDA stockings and SCDs for additional prophylaxis. Her H&H was stable and did not require transfusion. Her surgical drain was discontinued on postoperative day #1; her surgical dressing will remain in place for approximately 7 days postoperative. She tolerated postop physical therapy reasonably well where she was ambulating and transferring appropriately. She was observing all total hip precautions. She was discharged home on postop day #2. She will continue her physical therapy at home. She will continue her aspirin for DVT prophylaxis and follow up in our office in approximately 10-14 days for initial postop evaluation.
== END 2017-04-12 12:33 | disposition home health service (06) | DRG 470 ==
LOC: C.ACU 05:18 → C.3E 07:15 → ENRESERV 10:16
PROC: 0SR90JA Replacement of Right Hip Joint with Synthetic Substitute, Uncemented, Open Approach (ICD-10-PCS; principal; 2017-04-10 08:00)
DX: M16.11 Unilateral primary osteoarthritis, right hip (principal); E78.00 Pure hypercholesterolemia, unspecified; J45.909 Unspecified asthma, uncomplicated; E11.9 Type 2 diabetes mellitus without complications; F32.9 Major depressive disorder, single episode, unspecified; E66.9 Obesity, unspecified; Z79.899 Other long term (current) drug therapy; Z68.37 Body mass index [BMI] 37.0-37.9, adult

== ENCOUNTER → 2017-05-31 | Outpatient (CLI) | payer OTHER ==
[~2017-05-31] MED LIST changes: +ASPEC81 PO; +CLB200 PO; +FRRG PO; -IBUP-1050 PO; -TRAM-10 PO
[2017-05-31 08:19] LABS: ESTIMATED AVERAGE GLUCOSE 117 mg/dl; HA1C FLAG Normal (Normal)
[2017-05-31 08:23] LABS: ALT/SGPT 35 U/L (12-78); AST/SGOT 30 U/L (15-37); BLOOD UREA NITROGEN 19 mg/dl (7-18); BUN/CREATININE RATIO 21.9 (10-20); CALCIUM 9.4 mg/dl (8.5-10.1); CARBON DIOXIDE 30 mmol/L (21-32); CHLORIDE 105 mmol/L (98-107); CHOLESTEROL 166 mg/dl (0-200); CREATININE 0.85 mg/dl (0.60-1.20); GLUCOSE 104 mg/dl (70-99); SODIUM 138 mmol/L (136-145); TRIGLYCERIDES 176 mg/dl (0-150); VERY LOW DENSITY LIPOPROT CALC 35 mg/dl
[2017-05-31 08:25] LABS: ALB/GLOB RATIO 1.1 (0.9-2); ALKALINE PHOSPHATASE 59 U/L (45-117); CHOLESTEROL/HDL RATIO 3.5; HDL CHOLESTEROL 47 mg/dl; LDL CHOLESTEROL CALCULATED 84 mg/dl
== END | disposition home or self-care (01) ==
LOC: C.LAB 07:09
PROVIDERS: ATTEND Family Medicine
DX: E78.2 Mixed hyperlipidemia (principal); E11.9 Type 2 diabetes mellitus without complications

== ENCOUNTER → 2017-06-27 | Outpatient (CLI) | payer OTHER ==
--- NOTE | 2017-06-27 07:52 | MAMMOGRAPHY REPORT ---
BILATERAL DIGITAL SCREENING MAMMOGRAM TOMOSYNTHESIS WITH CAD: 06/27/2017 CLINICAL HISTORY: Routine screening. TECHNIQUE: Breast tomosynthesis in addition to standard 2D mammography was performed. Current study was also evaluated with a Computer Aided Detection (CAD) system. COMPARISON: Comparison is made to exams dated: 06/23/2015 mammogram, 06/26/2016 mammogram, 06/20/2014 m ammogram, 06/17/2013 mammogram, 06/11/2012 mammogram, and 06/06/2011 mammogram - [facility]. BREAST COMPOSITION: The tissue of both breasts is almost entirely fatty. FINDINGS: No suspicious masses, calcifications, or areas of architectural distortion are noted in ei ther breast. There has been no significant interval change compared to prior exams. IMPRESSION: ACR BI-RADS CATEGORY 1: NEGATIVE There is no mammographic evidence of malignancy. A 1 year screening mammogram is recommended. The pa tient will receive written notification of the results. Approximately 10% of breast cancers are not detected with mammography. A negative mammographic report should not delay biopsy if a clinically suggestive mass is present. Laura Roberts M.D. /:06/27/2017 07:38:34 Multi Sensor Operator: Kriss MCLEOD(Angeline)(M), [facility] letter sent: Normal 1/2 BI-RADS Code: ACR BI-RADS Category 1: Negative
== END | disposition home or self-care (01) ==
LOC: C.MAMM 07:14
PROVIDERS: ATTEND Family Medicine
DX: Z12.31 Encounter for screening mammogram for malignant neoplasm of breast (principal)

== ENCOUNTER → 2017-09-06 | Outpatient (CLI) | payer OTHER ==
[2017-09-06 07:49] LABS: ALBUMIN 4.1 gm/dl (3.4-5.0); ALT/SGPT 58 U/L (12-78); AST/SGOT 46 U/L (15-37); BLOOD UREA NITROGEN 22 mg/dl (7-18); CALCIUM 9.2 mg/dl (8.5-10.1); CARBON DIOXIDE 28 mmol/L (21-32); CREATININE 0.93 mg/dl (0.60-1.20); GLUCOSE 131 mg/dl (70-99); POTASSIUM 4.4 mmol/L (3.5-5.1); SODIUM 136 mmol/L (136-145)
[2017-09-06 07:51] LABS: ALKALINE PHOSPHATASE 60 U/L (45-117); CHOLESTEROL 167 mg/dl (0-200); LDL CHOLESTEROL CALCULATED 93 mg/dl; TOTAL PROTEIN 8.1 gm/dl (6.4-8.2)
[2017-09-06 07:53] LABS: HEMOGLOBIN A1C 6.2 % (4.5-5.6)
== END | disposition home or self-care (01) ==
LOC: C.LAB 06:58
PROVIDERS: ATTEND Family Medicine
DX: E11.9 Type 2 diabetes mellitus without complications (principal); E78.2 Mixed hyperlipidemia

== ENCOUNTER → 2017-12-08 | Outpatient (CLI) | payer OTHER ==
[~2017-12-08] MED LIST changes: -ASPEC81 PO; +ASPI-320 PO
== END | disposition home or self-care (01) ==
LOC: C.MAMM 07:54
PROVIDERS: ATTEND Family Medicine
DX: S72.90XA Unspecified fracture of unspecified femur, initial encounter for closed fracture (principal); X58.XXXA Exposure to other specified factors, initial encounter

== ENCOUNTER → 2017-12-13 | Outpatient (CLI) | payer OTHER ==
[2017-12-13 08:26] LABS: ALBUMIN 4.4 gm/dl (3.4-5.0); ALT/SGPT 51 U/L (12-78); AST/SGOT 41 U/L (15-37); BLOOD UREA NITROGEN 22 mg/dl (7-18); CALCIUM 9.4 mg/dl (8.5-10.1); CARBON DIOXIDE 29 mmol/L (21-32); CHOLESTEROL 159 mg/dl (0-200); CREATININE 1.11 mg/dl (0.60-1.20); GLUCOSE 113 mg/dl (70-99); POTASSIUM 4.2 mmol/L (3.5-5.1); SODIUM 138 mmol/L (136-145)
[2017-12-13 08:29] LABS: ALKALINE PHOSPHATASE 49 U/L (45-117); LDL CHOLESTEROL CALCULATED 85 mg/dl; TOTAL PROTEIN 8.2 gm/dl (6.4-8.2)
== END | disposition home or self-care (01) ==
LOC: C.LAB 06:58
PROVIDERS: ATTEND Family Medicine
DX: E11.9 Type 2 diabetes mellitus without complications (principal); E78.2 Mixed hyperlipidemia